=== PATIENT | male | born 1995 | race Caucasian/White ===

== ENCOUNTER 2022-04-27 15:50 | Inpatient (IN) | payer MEDICAID ==
[~2022-04-27] VITALS: Ht 182.9 cm; Wt 86.2 kg
[2022-04-27 16:44] LABS: BASOPHILS ABSOLUTE AUTO 0.03 K/mm3 (0.00-0.23); BASOPHILS PERCENT AUTO 0 % (0-2); EOSINOPHILS ABSOLUTE AUTO 0.13 K/mm3 (0.00-0.68); EOSINOPHILS PERCENT AUTO 1 % (0-6); Hemoglobin 17.5 g/dL (13.5-17.5); IMMATURE GRAN ABSOLUTE AUTO 0.08 K/mm3 (0.00-0.10); IMMATURE GRAN PERCENT AUTO 0 % (0-1); LYMPHOCYTES ABSOLUTE AUTO 1.97 K/mm3 (0.84-5.20); LYMPHOCYTES PERCENT AUTO 10 % (21-46); MONOCYTES ABSOLUTE AUTO 1.79 K/mm3 (0.16-1.47); MONOCYTES PERCENT AUTO 9 % (4-13); Mean Corpuscular HGB 30.2 pg (26.0-34.0); Mean Corpuscular HGB Conc 35.7 g/dL (31.5-36.5); Mean Corpuscular Volume 85 fL (80-100); Mean Platelet Volume 10.5 fL (9.1-12.4); NEUTROPHILS PERCENT AUTO 79 % (41-73); Platelet Count 277 K/mm3 (150-400); RDW Coefficient Variation 12.7 % (11.7-14.2); RDW Standard Deviation 38.8 fL (35.1-46.3); Red Blood Cell Count 5.79 M/mm3 (4.30-5.90)
[2022-04-27 17:06] LABS: Albumin, Blood 4.6 g/dL (3.4-5.0); Albumin/Globulin Ratio 1.1 (0.8-1.8); Bilirubin, Total 1.6 mg/dL (0.1-1.0); Bun/Creatinine Ratio 10.6 (12.0-20.0); Calcium, Blood 9.8 mg/dL (8.5-10.1); Creatinine, Blood 1.23 mg/dL (0.60-1.20); Globulin, Blood 4.1 g/dL (2.2-4.0); Potassium, Blood 4.1 mmol/L (3.5-5.5); Total Protein, Blood 8.7 g/dL (6.4-8.2)
[2022-04-27] MEDS ORDERED: BASAGLAR K100 UNIT/3 SC (18:44)
[2022-04-27 22:40] LABS: Lactate Dehydrogenase (Ld),Bld 142 U/L (100-240); Sodium, Blood 140 mmol/L (136-145)
--- NOTE | 2022-04-27 22:40 | NUR ---
ED ADMISSION THE PATIENT IS A 26 YEAR-OLD MALE WITH A DIAGNOSIS OF PANCREATITIS WITH NECROSIS AT THE PANCREATIC TAIL. PATIENT REPORTS A HISTORY OF EXACERBATIONS AFTER CONSUMING ALCOHOL. PATIENT DENIES DRINKING DAILY BUT DOES REPORT DRINKING SEVERAL BEERS YESTERDAY EVENING. A&OX4. PATIENT EFFECTIVELY COMMUNICATES NEEDS. BP 158/86, HR 44; PATIENT REPORTS THIS IS NORMAL FOR HIM. SPO2 >90% ON RA. RR EVEN AND UNLABORED. PATIENT REPORTS DIFFUSE RIGHT QUADRANT PAIN. REFER TO EMAR FOR PAIN MEDICATION COVERAGE. NS @ 150ML/HR INFUSING IN RIGHT FOREARM IV. NO ACUTE CONCERNS AT THIS TIME. THE PATIENT IS RESTING COMFORTABLY IN BED. BED LOW AND LOCKED. CALL LIGHT WITHIN REACH. THIS RN WILL CLOSELY MONITOR.
--- NOTE | 2022-04-28 00:45 | NUR ---
THIS RN SPOKE WITH DR. HENRIQUEZ REGARDING STOPPING NS INFUSION AND STARTING LR INFUSION RELATED TO SODIUM LEVEL OF 140 @2218. DR. HENRIQUEZ WAS AGREEABLE AND REQUESTED TO START LR INFUSION.
--- NOTE | 2022-04-28 04:33 | NUR ---
ADVANCED ANALYTICS ASSOCIATE SUMMARY THE PATIENT IS A 26 YEAR-OLD MALE WITH A DIAGNOSIS OF PANCREATITIS WITH NECROSIS AT THE PANCREATIC TAIL. PATIENT REPORTS A HISTORY OF FLARE-UPS AFTER CONSUMING ALCOHOL. PER PATIENT, HE IS NOT A DAILY DRINKER BUT DID DRINK SEVERAL BEERS YESTERDAY. PAIN ASSESSED AND MEDICATED PER EMAR. PATIENT REPORTED MILD NAUSEA WITH ONE EPISODE OF EMESIS. ZOFRAN PROVIDED PER EMAR. LR @ 125ML/HR INFUSING IN RIGHT FOREARM IV. VSS. SPO2 >92% ON RA. RR EVEN AND UNLABORED. NO ACUTE CONCERNS AT THIS TIME. BED LOW AND LOCKED. CALL LIGHT WITHIN REACH. THIS RN WILL CONTINUE TO CLOSELY MONITOR.
[2022-04-28 04:57] LABS: BASOPHILS ABSOLUTE AUTO 0.02 K/mm3 (0.00-0.23); BASOPHILS PERCENT AUTO 0 % (0-2); EOSINOPHILS ABSOLUTE AUTO 0.05 K/mm3 (0.00-0.68); EOSINOPHILS PERCENT AUTO 0 % (0-6); Hemoglobin 15.1 g/dL (13.5-17.5); IMMATURE GRAN ABSOLUTE AUTO 0.07 K/mm3 (0.00-0.10); IMMATURE GRAN PERCENT AUTO 0 % (0-1); LYMPHOCYTES PERCENT AUTO 9 % (21-46); MONOCYTES ABSOLUTE AUTO 1.63 K/mm3 (0.16-1.47); MONOCYTES PERCENT AUTO 10 % (4-13); Mean Corpuscular HGB 30.5 pg (26.0-34.0); Mean Corpuscular Volume 85 fL (80-100); Mean Platelet Volume 10.9 fL (9.1-12.4); NEUTROPHILS ABSOLUTE AUTO 12.74 K/mm3 (1.96-9.15); NEUTROPHILS PERCENT AUTO 80 % (41-73); Platelet Count 193 K/mm3 (150-400); RDW Coefficient Variation 12.7 % (11.7-14.2); RDW Standard Deviation 39.1 fL (35.1-46.3); Red Blood Cell Count 4.95 M/mm3 (4.30-5.90); White Blood Cell Count 16.01 K/mm3 (4.00-11.30)
[2022-04-28 05:34] LABS: Albumin, Blood 3.8 g/dL (3.4-5.0); Albumin/Globulin Ratio 1.1 (0.8-1.8); Bilirubin, Total 1.6 mg/dL (0.1-1.0); Bun/Creatinine Ratio 11.1 (12.0-20.0); Calcium, Blood 8.7 mg/dL (8.5-10.1); Creatinine, Blood 1.08 mg/dL (0.60-1.20); Globulin, Blood 3.6 g/dL (2.2-4.0); Potassium, Blood 3.7 mmol/L (3.5-5.5); Total Protein, Blood 7.4 g/dL (6.4-8.2)
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
--- NOTE | 2022-04-28 17:15 | NUR ---
SHIFT SUMMARY: PT ALERT AND ORIENTED X4. PT WAS UPSET THIS AM THAT WE WERE NOT DOSING HIM EVERY HOUR WITH HIS PAIN MEDICATION. EXPLAINED TO PT THAT THE PAIN MEDS ARE PRN AND TO CALL WHEN HE NEEDS IT. MORPHINE D/C'D. FENTANYL CHANGED TO 50MCG Q2 INSTEAD OF THE 25MCG. 30MG IV TORADOL Q6 PRN ORDERED. PT HAS BEEN CALLING Q2 FOR FENTANYL AND IS STARTING TO SAY HE FEELS LIKE THE PAIN MEDICATION IS HELPING. PT REMAINS NPO. PT HAD NAUSEA THIS AM. GAVE IV ZOFRAN AND HAS NOT C/O PAIN SINCE. LR RUNNING @150 W/O COMPLICATIONS. REQUEST FOR MEDICAL RECORDS FAXED TO [facility] IN [place] PER DR. RIOS. CALL LIGHT IN REACH. BED IN LOWEST POSITION. WILL CONTINUE TO MONITOR.
--- NOTE | 2022-04-29 04:24 | NUR ---
DOCUMENT COORDINATOR SUMMARY A&OX4. PATIENT EFFECTIVELY COMMUNICATES NEEDS. VSS. RR EVEN AND UNLABORED ON RA. RIGHT-SIDED ABDOMINAL PAIN ASSESSED AND FREQUENTLY MEDICATED PER EMAR. PATIENT IS NPO AND HAS LR @150 INFUSING IN RIGHT AC IV. NO ACUTE CONCERNS THIS SHIFT. BED LOW AND LOCKED. CALL LIGHT WITHIN REACH. THIS RN WILL CONTINUE TO MONITOR.
[2022-04-29 04:49] LABS: BASOPHILS ABSOLUTE AUTO 0.02 K/mm3 (0.00-0.23); BASOPHILS PERCENT AUTO 0 % (0-2); EOSINOPHILS ABSOLUTE AUTO 0.18 K/mm3 (0.00-0.68); EOSINOPHILS PERCENT AUTO 2 % (0-6); Hematocrit 35.4 % (37.0-53.0); Hemoglobin 12.8 g/dL (13.5-17.5); IMMATURE GRAN ABSOLUTE AUTO 0.02 K/mm3 (0.00-0.10); IMMATURE GRAN PERCENT AUTO 0 % (0-1); LYMPHOCYTES ABSOLUTE AUTO 1.01 K/mm3 (0.84-5.20); LYMPHOCYTES PERCENT AUTO 14 % (21-46); MONOCYTES ABSOLUTE AUTO 0.66 K/mm3 (0.16-1.47); MONOCYTES PERCENT AUTO 9 % (4-13); Mean Corpuscular HGB Conc 36.2 g/dL (31.5-36.5); Mean Corpuscular Volume 86 fL (80-100); Mean Platelet Volume 10.8 fL (9.1-12.4); NEUTROPHILS ABSOLUTE AUTO 5.61 K/mm3 (1.96-9.15); NEUTROPHILS PERCENT AUTO 75 % (41-73); Platelet Count 110 K/mm3 (150-400); RDW Coefficient Variation 12.5 % (11.7-14.2); RDW Standard Deviation 39.3 fL (35.1-46.3); Red Blood Cell Count 4.13 M/mm3 (4.30-5.90)
[2022-04-29 05:09] LABS: Albumin, Blood 3.1 g/dL (3.4-5.0); Anion Gap 7 mmol/L (6-16); Blood Urea Nitrogen 8 mg/dL (8-24); Bun/Creatinine Ratio 8.5 (12.0-20.0); CO2, Blood 27 mmol/L (21-32); Calcium, Blood 8.5 mg/dL (8.5-10.1); Chloride, Blood 102 mmol/L (98-108); Creatinine, Blood 0.94 mg/dL (0.60-1.20); Glomerular Filtration Rate 115 (60-); Glucose, Blood 141 mg/dL (70-99); Phosphorus, Blood 2.5 mg/dL (2.5-4.9); Potassium, Blood 3.8 mmol/L (3.5-5.5); Sodium, Blood 136 mmol/L (136-145)
--- NOTE | 2022-04-29 17:19 | NUR ---
SHIFT SUMMARY: PT ALERT AND ORIENTED X4. PT PLEASANT AND COOPERATIVE WITH ALL CARE. NO ACUTE CHANGES WITH PT THIS SHIFT. PT CHANGED TO CLEAR LIQUID DIET FROM NPO AND TOLERATING WELL. PT C/O PAIN SEVERAL TIMES THIS SHIFT. PROVIDED PT WITH FENTANYL 50MCG PRN. PT C/O NAUSEA ONCE. GAVE PT PRN ZOFRAN AND HAS NOT C/O NAUSEA SINCE. PT INDEPENDENT IN ROOM. IV PATENT AND FLUSHING W/O PAIN, REDNESS, OR SWELLING. CALL LIGHT IN REACH. WILL CONTINUE TO MONITOR.
--- NOTE | 2022-04-30 06:08 | NUR ---
SHIFT SUMMARY - PT DENIED ANY NAUSEA THROUGHOUT THE NIGHT. PT TOLERATED PO FLUIDS/WATER WITHOUT COMPLICATIONS. PT MEDICATED FOR RIGHT SIDED ABDOMINAL PAIN SEVERAL TIMES - SEE EMAR. PT REPORTS HE DOESN'T DRINK ETOH DAILY, "USUALLY ON THE WEEK END WITH FRIENDS." PT UNDERSTANDS THE IMPORTANCE OF LIMITING HIS ETOH INTAKE, DUE TO PANCREATITIS X2 NOW. PT SLEPT FOR APPX 4 HOURS TONIGHT. PO FLUIDS AT BEDSIDE. CALL LIGHT WITHIN REACH. BED IN LOW POSITION. PT HAS BEEN UP INDEPENDENTLY THROUGHOUT THE NIGHT. WILL CONTINUE TO MONITOR UNTIL AM SHIFT CHANGE.
[2022-04-30] MEDS ORDERED: MIRALAX17 GM PO (10:50)
[2022-04-30] MEDS ORDERED: Percocet 5-3251 EACH PO (10:50)
[2022-04-30] MEDS ORDERED: HUMALOG KW100 UNIT/1 SC (10:51)
--- NOTE | 2022-04-30 11:45 | NUR ---
PATIENT DISCHARGED AT 1120. IV PULLED. MEDS FAXED TO [facility]. PATIENT SENT HOME WITH HARD SCRIPT FOR PERCOCET.
== END 2022-04-30 11:20 | disposition home or self-care (01) | DRG 439 ==
LOC: ER 15:50 → MEDS 20:43 → ERHOLD 20:43 → MEDS 22:31
PROVIDERS: Family Medicine; Internal Medicine; Physician Assistant; ADMIT Student in an Organized Health Care Education/Training Program
DX: K85.20 Alcohol induced acute pancreatitis without necrosis or infection (principal); E87.1 Hypo-osmolality and hyponatremia; K86.1 Other chronic pancreatitis; F17.290 Nicotine dependence, other tobacco product, uncomplicated; E86.1 Hypovolemia; F10.90 Alcohol use, unspecified, uncomplicated; E11.65 Type 2 diabetes mellitus with hyperglycemia; Z79.4 Long term (current) use of insulin
CPT/HCPCS: 36415; 74177; 80053; 80069; 82947; 83036; 83615; 83690; 84295; 85025; 96374-59; 96375; 96376; 99285-25; A9270; G0480; J1170; J1815; J1885; J2270; J2405; J3010; J7030; J7120; Q9967

== ENCOUNTER 2022-07-13 16:39 | Emergency (ER) | payer OTHER ==
[~2022-07-13] VITALS: Ht 182.9 cm; Wt 78.0 kg
[~2022-07-13 16:39] MED LIST: BASAGLAR K100 UNIT/3 SC; HUMALOG KW100 UNIT/1 SC; MIRALAX17 GM PO; Percocet 5-3251 EACH PO
[2022-07-13 17:16] LABS: Base Excess Venous 3.3 mmol/L; Bicarbonate Venous 26.9 mmol/L (24.0-30.0); PCO2 Venous 42.1 mmHg (38-42); PO2 Venous 66.7 mmHg (38-42); pH Blood Venous 7.43 (7.34-7.37)
[2022-07-13 17:17] LABS: BASOPHILS ABSOLUTE AUTO 0.01 K/mm3 (0.00-0.23); BASOPHILS PERCENT AUTO 0 % (0-2); EOSINOPHILS ABSOLUTE AUTO 0.03 K/mm3 (0.00-0.68); EOSINOPHILS PERCENT AUTO 1 % (0-6); Hematocrit 41.3 % (37.0-53.0); Hemoglobin 14.7 g/dL (13.5-17.5); IMMATURE GRAN ABSOLUTE AUTO 0.01 K/mm3 (0.00-0.10); IMMATURE GRAN PERCENT AUTO 0 % (0-1); LYMPHOCYTES ABSOLUTE AUTO 1.16 K/mm3 (0.84-5.20); LYMPHOCYTES PERCENT AUTO 24 % (21-46); MONOCYTES ABSOLUTE AUTO 0.44 K/mm3 (0.16-1.47); MONOCYTES PERCENT AUTO 9 % (4-13); Mean Corpuscular HGB 30.1 pg (26.0-34.0); Mean Corpuscular HGB Conc 35.6 g/dL (31.5-36.5); Mean Corpuscular Volume 85 fL (80-100); Mean Platelet Volume 10.6 fL (9.1-12.4); NEUTROPHILS ABSOLUTE AUTO 3.17 K/mm3 (1.96-9.15); NEUTROPHILS PERCENT AUTO 66 % (41-73); Platelet Count 175 K/mm3 (150-400); RDW Standard Deviation 36.3 fL (35.1-46.3); Red Blood Cell Count 4.89 M/mm3 (4.30-5.90); White Blood Cell Count 4.82 K/mm3 (4.00-11.30)
[2022-07-13 17:40] LABS: Albumin, Blood 4.2 g/dL (3.4-5.0); Albumin/Globulin Ratio 1.1 (0.8-1.8); Bilirubin, Total 0.5 mg/dL (0.1-1.0); Bun/Creatinine Ratio 20.2 (12.0-20.0); Calcium, Blood 9.2 mg/dL (8.5-10.1); Creatinine, Blood 0.69 mg/dL (0.60-1.20); Globulin, Blood 3.8 g/dL (2.2-4.0); Potassium, Blood 4.1 mmol/L (3.5-5.5)
[2022-07-13 19:52] LABS: Source, Urine Clean Catch
[2022-07-13 19:55] LABS: Appearance, Urine Clear (Clear); Bilirubin, Urine Neg (Neg); Blood, Urine Neg (Neg); Glucose Qualitative, Urine 4+ (Neg); Ketones, Urine Neg (Neg); Leukocyte Esterase, Urine Neg (Neg); Nitrite, Urine Neg (Neg); Protein, Urine Neg (Neg); Urobilinogen, Urine NORM (Normal); pH, Urine 6.5 (5.0-8.0)
[2022-07-13 19:57] LABS: Color, Urine Pale Yellow (P-Yellow)
== END 2022-07-13 20:12 | disposition home or self-care (01) ==
LOC: ER 16:39
PROVIDERS: Physician Assistant
DX: E11.65 Type 2 diabetes mellitus with hyperglycemia (principal); F17.290 Nicotine dependence, other tobacco product, uncomplicated; Z79.4 Long term (current) use of insulin
CPT/HCPCS: 36415; 80053; 81003; 82803; 82947; 85025; 99283-25; A9270

== ENCOUNTER → 2022-09-08 | Outpatient (CLI) | payer OTHER ==
[2022-09-08 17:51] LABS: BASOPHILS ABSOLUTE AUTO 0.04 K/mm3 (0.00-0.23); BASOPHILS PERCENT AUTO 1 % (0-2); EOSINOPHILS ABSOLUTE AUTO 0.05 K/mm3 (0.00-0.68); EOSINOPHILS PERCENT AUTO 1 % (0-6); Hematocrit 42.1 % (37.0-53.0); Hemoglobin 13.9 g/dL (13.5-17.5); IMMATURE GRAN ABSOLUTE AUTO 0.02 K/mm3 (0.00-0.10); IMMATURE GRAN PERCENT AUTO 0 % (0-1); LYMPHOCYTES ABSOLUTE AUTO 1.56 K/mm3 (0.84-5.20); LYMPHOCYTES PERCENT AUTO 23 % (21-46); MONOCYTES ABSOLUTE AUTO 0.55 K/mm3 (0.16-1.47); MONOCYTES PERCENT AUTO 8 % (4-13); Mean Corpuscular HGB 29.4 pg (26.0-34.0); Mean Corpuscular Volume 89 fL (80-100); Mean Platelet Volume 10.7 fL (9.1-12.4); NEUTROPHILS PERCENT AUTO 67 % (41-73); Platelet Count 269 K/mm3 (150-400); RDW Coefficient Variation 12.3 % (11.7-14.2); RDW Standard Deviation 40.4 fL (35.1-46.3); Red Blood Cell Count 4.73 M/mm3 (4.30-5.90); White Blood Cell Count 6.82 K/mm3 (4.00-11.30)
[2022-09-08 19:45] LABS: Alanine Aminotransfer (ALT/SGP 40 U/L (12-78); Albumin/Globulin Ratio 1.1 (0.8-1.8); Alk Phos 95 U/L (50-136); Anion Gap 7 mmol/L (6-16); Aspartate Aminotrans (AST/SGOT 48 U/L (12-37); Bilirubin, Total 0.6 mg/dL (0.1-1.0); Blood Urea Nitrogen 17 mg/dL (8-24); Bun/Creatinine Ratio 21.3 (12.0-20.0); CHOL/HDL RATIO 3.2; CO2, Blood 27 mmol/L (21-32); Calcium, Blood 9.2 mg/dL (8.5-10.1); Chloride, Blood 94 mmol/L (98-108); Cholesterol 172 mg/dL (50-200); Globulin, Blood 3.6 g/dL (2.2-4.0); Glomerular Filtration Rate 124 (60-); Glucose, Blood 521 mg/dL (70-99); HDL Cholesterol 53 mg/dL (>39); LDL/HDL RATIO 1.5; Low Density Lipoprotein Chol 78 mg/dL (0-110); Potassium, Blood 4.8 mmol/L (3.5-5.5); Sodium, Blood 128 mmol/L (136-145); Total Protein, Blood 7.6 g/dL (6.4-8.2); Triglycerides 204 mg/dL (30-140); Very Low Density Lipoprot Chol 40 mg/dL (6-28)
[2022-09-09 09:13] LABS: HIV AB/P24 AG SCREEN Non Reactive (Non Reactive)
== END | disposition home or self-care (01) ==
LOC: LAB 17:21 → LAB SHORT 17:21
PROVIDERS: Family Medicine
DX: Z00.01 Encounter for general adult medical examination with abnormal findings (principal); Z13.6 Encounter for screening for cardiovascular disorders
CPT/HCPCS: 80053; 80061; 85025; 87389

== ENCOUNTER 2023-02-21 10:33 | Inpatient (IN) | payer OTHER ==
[~2023-02-21] VITALS: Ht 182.9 cm; Wt 77.4 kg
[2023-02-21] VITALS (7 sets, daily range): BP systolic 137–166; BP diastolic 101–142
[2023-02-21 11:14] LABS: BASOPHILS ABSOLUTE AUTO 0.05 K/mm3 (0.00-0.23); BASOPHILS PERCENT AUTO 0 % (0-2); EOSINOPHILS ABSOLUTE AUTO 0.01 K/mm3 (0.00-0.68); EOSINOPHILS PERCENT AUTO 0 % (0-6); Hematocrit 50.4 % (37.0-53.0); Hemoglobin 17.3 g/dL (13.5-17.5); IMMATURE GRAN ABSOLUTE AUTO 0.06 K/mm3 (0.00-0.10); IMMATURE GRAN PERCENT AUTO 1 % (0-1); LYMPHOCYTES ABSOLUTE AUTO 0.88 K/mm3 (0.84-5.20); LYMPHOCYTES PERCENT AUTO 7 % (21-46); MONOCYTES ABSOLUTE AUTO 0.96 K/mm3 (0.16-1.47); MONOCYTES PERCENT AUTO 8 % (4-13); Mean Corpuscular HGB 31.3 pg (26.0-34.0); Mean Corpuscular HGB Conc 34.3 g/dL (31.5-36.5); Mean Corpuscular Volume 91 fL (80-100); Mean Platelet Volume 9.6 fL (9.1-12.4); NEUTROPHILS ABSOLUTE AUTO 10.81 K/mm3 (1.96-9.15); NEUTROPHILS PERCENT AUTO 85 % (41-73); Platelet Count 308 K/mm3 (150-400); RDW Coefficient Variation 11.9 % (11.7-14.2); RDW Standard Deviation 40.1 fL (35.1-46.3); Red Blood Cell Count 5.52 M/mm3 (4.30-5.90); White Blood Cell Count 12.77 K/mm3 (4.00-11.30)
[2023-02-21 11:20] LABS: Source, Urine Clean Catch
[2023-02-21 11:25] LABS: Appearance, Urine Clear (Clear); Bilirubin, Urine Neg (Neg); Blood, Urine 2+ (Neg); Glucose Qualitative, Urine 4+ (Neg); Ketones, Urine 4+ (Neg); Leukocyte Esterase, Urine Neg (Neg); Nitrite, Urine Neg (Neg); Protein, Urine 3+ (Neg); Urobilinogen, Urine NORM (Normal)
[2023-02-21 11:46] LABS: Albumin, Blood 4.9 g/dL (3.4-5.0); Bilirubin, Total 1.2 mg/dL (0.1-1.0); Bun/Creatinine Ratio 12.2 (12.0-20.0); Calcium, Blood 10.1 mg/dL (8.5-10.1); Creatinine, Blood 0.9 mg/dL (0.60-1.20); Potassium, Blood 4.7 mmol/L (3.5-5.5); Total Protein, Blood 9.9 g/dL (6.4-8.2)
[2023-02-21 12:11] LABS: Color, Urine Pale Yellow (P-Yellow); Squamous Epithelial Cells Rare /hpf (Few); White Blood Cells, Urine Not Seen /hpf (0-5)
[2023-02-21 12:12] LABS: Bacteria Not Seen /hpf
[2023-02-21 16:14] LABS: Potassium, Blood 3.9 mmol/L (3.5-5.5)
--- NOTE | 2023-02-21 18:13 | NUR ---
ANGELA WAS ADMITTED TO ICU BED 5 JUST BEFORE 1700. HE IS A/O AND COOPERATIVE. HE IS VERY UNCOMFORTABLE WITH PAIN 8/10 IN THE MIDLINE BELOW STERNUM RADIATING. HE HAS BEEN MEDICATED PER JUN. HE HAS IV'S IN RIGHT AC AND LEFT WRIST, IV FLUIDS NS @ 150ML/HR AND INSULIN @ 4.4U/HR. HIS CHEM BG'S ARE COMING DOWN NICELY, WITH ORDERS TO SWITCH TO D51/2NS WHEN SUGAR AT OR BELOW 220.
--- NOTE | 2023-02-21 18:57 | NUR ---
CALL MADE TO DR. BARKER, PT REQUESTS THAT HE RECEIVE THE DILAUDID RATHER THAN THE MORPHINE, THE MORPHINE DIDN'T "HELP THAT MUCH". GAVE AN ADMONITION WITH THE ORDER, THIS WAS RELAYED TO THE PATIENT. PT IS NOTED TO HAVE SOME ABRASIONS/SCABS TO THE LEFT LOWER LEG, PT STATES THAT HE RECIEVED THEM WHILE PLAYING SOFTBALL JUST OVER A WEEK AGO. THERE IS NO OPEN AREA, SCABS AND DRY SKIN, PINK TISSUE EVIDENT.
--- NOTE | 2023-02-21 20:13 | NUR ---
PT'S BLOOD SUGAR HAS DROPPED TO 218, PER ORDERS PT IS CHANGED TO D5 1/2NS @ 100ML/HR WITH INSULIN STILL INFUSING AT 4.4U/HR. PT CONTINUES TO HAVE SIGNIFI- CANT PAIN IN THE ABDOMEN WITH MINIMAL RELIEF. MEDICATIONS PER MAR. VOIDED PER URINAL, CLEAR 1000ML. PT CONT TO TRY TO SLEEP.
[2023-02-21 20:14] LABS: Potassium, Blood 3.7 mmol/L (3.5-5.5)
[2023-02-21 23:49] LABS: Potassium, Blood 3.9 mmol/L (3.5-5.5)
[2023-02-22] VITALS (20 sets, daily range): BP systolic 114–153; BP diastolic 69–104
[2023-02-22 03:25] LABS: Hematocrit 45.4 % (37.0-53.0); Hemoglobin 16.1 g/dL (13.5-17.5); Mean Corpuscular HGB 31.4 pg (26.0-34.0); Mean Corpuscular HGB Conc 35.5 g/dL (31.5-36.5); Mean Corpuscular Volume 89 fL (80-100); Mean Platelet Volume 9.3 fL (9.1-12.4); Platelet Count 235 K/mm3 (150-400); RDW Coefficient Variation 12.3 % (11.7-14.2); Red Blood Cell Count 5.13 M/mm3 (4.30-5.90); White Blood Cell Count 13.41 K/mm3 (4.00-11.30)
[2023-02-22 03:44] LABS: Bun/Creatinine Ratio 16.3 (12.0-20.0); Calcium, Blood 8.5 mg/dL (8.5-10.1); Creatinine, Blood 0.74 mg/dL (0.60-1.20); Potassium, Blood 3.9 mmol/L (3.5-5.5)
--- NOTE | 2023-02-22 07:15 | NUR ---
CARE ASSUMPTION DURING BEDSIDE SHIFT REPORT W DARI RN THE PT IS AWAKE SITTING UPRIGHT IN BED ON RM AIR. MONITOR SHOWING SR 90'S. BP WNL AND STABLE. PT IS ALERT AND COMMUNICATING APPROPRIATELY W STAFF. PT HAS C/O PAIN IN HIS RLQ OF ABDOMEN WHICH IS UNCHANGED FROM PREVIOUS SHIFT. PT DENYING ANY FURTHER NEEDS AT THIS TIME.
--- NOTE | 2023-02-22 07:29 | NUR ---
PATIENT AOX4. SR/ST WITH STABLE BP. ROOM AIR. NPO. VOIDING IN URINAL. REQUESTING DILAUDID Q2 PRN FOR ABDOMINAL PAIN.
[2023-02-22 07:47] LABS: Bun/Creatinine Ratio 17.2 (12.0-20.0); Calcium, Blood 8.6 mg/dL (8.5-10.1); Creatinine, Blood 0.7 mg/dL (0.60-1.20); Potassium, Blood 3.8 mmol/L (3.5-5.5)
[2023-02-22 15:50] LABS: Bun/Creatinine Ratio 16.2 (12.0-20.0); Calcium, Blood 8.7 mg/dL (8.5-10.1); Creatinine, Blood 0.68 mg/dL (0.60-1.20); Potassium, Blood 3.5 mmol/L (3.5-5.5)
--- NOTE | 2023-02-22 16:29 | NUR ---
DAY SHIFT SUMMARY PT HAS REMAINED ALERT AND ORIENTED THIS SHIFT COMMUNICATING APPROPRIATELY W STAFF. PT'S GAP WAS CLOSED AND CO2 WNL THIS AM SO PT WAS BRIDGED TO LONG ACTING INSULIN AND OFF OF THE INSULIN GTT. PT NOT WANTING TO ATTEMPT ANY PO INTAKE THIS SHIFT. PT'S MAIN COMPLAINT HAS BEEN PAIN IN HIS RLQ WHICH IS UNCHANGED FROM PREVIOUS SHIFT. PT MEDICATED OR EMAR APPROX Q2H. PT DENYING ANY SIGNIFICANT NAUSEA THIS SHIFT BUT DID NOT BELIEVE HE WOULD BE ABLE TO EAT OR DRINK ANYTHING W/O THROWING IT UP. SPO2 >94% ON RM AIR. BP WNL AND STABLE. MONITOR SHOWING SR 80'S-90'S THIS SHIFT. PT USING HIS CALL LIGHT TO MAKE HIS NEEDS KNOWN THIS SHIFT AND PLEASANTLY PARTICPATING IN HIS CARE. TRANSFER ORDERS FOR MEDICAL FLOOR OBTAINED LATE THIS SHIFT FROM , NO BED ASSIGNMENT AT THIS TIME. WILL REPORT TO ONCOMING RN.
--- NOTE | 2023-02-22 19:46 | NUR ---
ASSUMED CARE PT IS A&O X4; SPO2 >92% ON RA; MAP >65; NSR. PT DENIES CP, SOB, AND NAUSEA. COMPLAINS OF RIGHT UPPER QUADRANT ABDOMINAL PAIN THAT RADIATES INTO LOWER RIGHT QUADRANT. MANAGING W/ DILAUDID AND TORADOL PER EMAR. RESTING QUIETLY AT THIS TIME.
--- NOTE | 2023-02-22 20:53 | NUR ---
TRANSFER PT TRANSFERRED TO MED 312 AT 2049 W/ MEDS AND BELONGINGS.
--- NOTE | 2023-02-23 05:26 | NUR ---
SHIFT SUMMARY PT IS A&O4, INDEPENDENT IN THE ROOM, RA, VSS, PRN PAIN MEDICATION GIVEN CONTINUALLY Q2 PER MAR FOR LUQ PAIN, PT WAS ABLE TO TOLERATE SIPS N CHIPS THROUGHOUT NIGHT W/O N/V, NO ACUTE OVERNIGHT EVENTS CONTINUE POC
[2023-02-23 07:41] VITALS: BP 114/70
[2023-02-23 15:32] VITALS: BP 117/84
--- NOTE | 2023-02-23 20:00 | NUR ---
SHIFT SUMMARY: PT A&O X4. PLEASANT AND COOPERATIVE WITH CARE. PT DIET UPGRADED FROM NPO TO FULL LIQUID AT DINNER. TOLERATING WELL. C/O ABDOMINAL PAIN FREQUENTLY. MEDICATED PER EMAR. NS INFUSING @100/HR. ROMEL HONEYCUTT PLACED NEW IV IN LFA D/T C/O IV BEEPING WHEN ARM BENT IN RAC. NO OTHER ACUTE CHANGES THIS SHIFT. CALL LIGHT IN REACH. REPORT GIVEN TO ONCOMING RN.
[2023-02-23 20:10] VITALS: BP 119/77
[2023-02-24 04:37] VITALS: BP 111/72
--- NOTE | 2023-02-24 05:42 | NUR ---
SHIFT SUMMARY: PT IS ADMITTED FOR DKA AND IS A FULL CODE. IS ALERT AND ABLE TO MAKE NEEDS KNOWN. ADL S ARE IND. PAIN HAS BEEN MANAGED BY PRN DILAUDID PER HIS REQUEST ABOUT EVERY 2 HOURS. IV TO LEFT FOREARM IS PATENT AND RUNNING NS @ 100ML/H WITH A CDI DRESSING.
[2023-02-24 05:48] LABS: Bun/Creatinine Ratio 8.5 (12.0-20.0); Calcium, Blood 8.9 mg/dL (8.5-10.1); Creatinine, Blood 0.71 mg/dL (0.60-1.20); Potassium, Blood 3.9 mmol/L (3.5-5.5)
[2023-02-24 07:42] VITALS: BP 118/70
[2023-02-24] MEDS ORDERED: TRAM50 PO (10:07)
== END 2023-02-24 13:35 | disposition home or self-care (01) | DRG 638 ==
LOC: ER 10:33 → MEDS 14:14 → ICUE 14:14 → MEDS 02-22 20:55 → ENPENDDIS 02-24 10:48 → MEDS 02-24 13:35
PROVIDERS: Internal Medicine; Student in an Organized Health Care Education/Training Program; ADMIT Internal Medicine
DX: E11.10 Type 2 diabetes mellitus with ketoacidosis without coma (principal); E87.1 Hypo-osmolality and hyponatremia; K86.3 Pseudocyst of pancreas; K86.1 Other chronic pancreatitis; Z79.4 Long term (current) use of insulin; Z87.19 Personal history of other diseases of the digestive system; Z87.891 Personal history of nicotine dependence
CPT/HCPCS: 36415; 76705; 80048; 80051; 80053; 81001; 82010; 82947; 83690; 83735; 85025; 85027; 94762; 96361; 96365; 96375; 96376; 99285-25; A9270; J1170; J1650; J1815; J1885; J2060; J2270; J2405; J3411; J7030; J7042

== ENCOUNTER 2023-04-07 02:00 | Inpatient (IN) | payer OTHER ==
[~2023-04-07] VITALS: Ht 182.9 cm; Wt 74.0 kg
[2023-04-07] VITALS (25 sets, daily range): BP systolic 122–161; BP diastolic 75–143
[~2023-04-07 02:00] MED LIST changes: +TRAM50 PO
[2023-04-07 03:04] LABS: Base Excess Venous -28.6 mmol/L; Bicarbonate Venous 7.4 mmol/L (24.0-30.0); PCO2 Venous 25.8 mmHg (38-42); pH Blood Venous 6.87 (7.34-7.37)
[2023-04-07 03:21] LABS: BASOPHILS ABSOLUTE AUTO 0.08 K/mm3 (0.00-0.23); BASOPHILS PERCENT AUTO 0 % (0-2); EOSINOPHILS ABSOLUTE AUTO 0.01 K/mm3 (0.00-0.68); EOSINOPHILS PERCENT AUTO 0 % (0-6); Hematocrit 52.9 % (37.0-53.0); Hemoglobin 17.6 g/dL (13.5-17.5); IMMATURE GRAN ABSOLUTE AUTO 0.21 K/mm3 (0.00-0.10); IMMATURE GRAN PERCENT AUTO 1 % (0-1); LYMPHOCYTES ABSOLUTE AUTO 2.16 K/mm3 (0.84-5.20); LYMPHOCYTES PERCENT AUTO 10 % (21-46); MONOCYTES ABSOLUTE AUTO 2.66 K/mm3 (0.16-1.47); MONOCYTES PERCENT AUTO 12 % (4-13); Mean Corpuscular HGB 30.9 pg (26.0-34.0); Mean Corpuscular HGB Conc 33.3 g/dL (31.5-36.5); Mean Corpuscular Volume 93 fL (80-100); Mean Platelet Volume 10.3 fL (9.1-12.4); NEUTROPHILS PERCENT AUTO 77 % (41-73); Platelet Count 339 K/mm3 (150-400); RDW Coefficient Variation 12.9 % (11.7-14.2); RDW Standard Deviation 43.1 fL (35.1-46.3); Red Blood Cell Count 5.69 M/mm3 (4.30-5.90); White Blood Cell Count 22.02 K/mm3 (4.00-11.30)
[2023-04-07 04:00] LABS: Calcium, Ionized (POC) 1.08 mmol/L (1.10-1.46); Chloride (POC) 100 mmol/L (98-108); Creatinine (POC) 1.3 mg/dL (0.8-1.3); Glucose (ISTAT POC) 565 mg/dL (70-99); Hemoglobin (POC) 18.4 g/dL (13.5-17.5); Potassium (POC) 3.9 mmol/L (3.5-5.5); Sodium (POC) 130 mmol/L (135-148); Total CO2 (POC) 8 mmol/L (21-32)
[2023-04-07 04:40] LABS: Source, Urine Voided
[2023-04-07 04:45] LABS: Bilirubin, Urine Neg (Neg); Blood, Urine 4+ (Neg); Glucose Qualitative, Urine 4+ (Neg); Ketones, Urine 4+ (Neg); Leukocyte Esterase, Urine Neg (Neg); Nitrite, Urine Neg (Neg); Protein, Urine 3+ (Neg); Specific Gravity, Urine 1.025 (1.003-1.022); Urobilinogen, Urine NORM (Normal)
[2023-04-07 05:17] LABS: Appearance, Urine Clear (Clear); Color, Urine Pale Yellow (P-Yellow)
[2023-04-07 05:20] LABS: Bacteria Few /hpf; Squamous Epithelial Cells Few /hpf (Few); White Blood Cells, Urine 0-2 /hpf (0-5)
[2023-04-07 05:36] LABS: Magnesium, Blood 2.3 mg/dL (1.6-2.4)
[2023-04-07 05:44] LABS: Albumin, Blood 4.6 g/dL (3.4-5.0); Bilirubin, Total 0.7 mg/dL (0.1-1.0); Calcium, Blood 8.1 mg/dL (8.5-10.1); Creatinine, Blood 1.25 mg/dL (0.60-1.20); Globulin, Blood 4.5 g/dL (2.2-4.0); Potassium, Blood 3.8 mmol/L (3.5-5.5); Total Protein, Blood 9.1 g/dL (6.4-8.2)
--- NOTE | 2023-04-07 06:37 | NUR ---
SHIFT SUMMARY PATIENT ARRIVED TO ICU FROM ER @ 0520 VIA BED. BELONGINGS WITH PATIENT AND GIRLFRIEND IN ICU WAITING AREA. INSULIN @ 8 UNITS/HR, NS WITH 20MEQ KCL DC'D UPON ARRIVAL AND LR STARTED @ 200ML/HR. 40MEQ KCL ORDERED AND INF. CBG DECREASED FROM 500'S IN ER TO 433 IN ICU. PATIENT WAS ABLE TO STAND AND USE URINAL AT BEDSIDE WITH 750ML OUT. NO BM SINCE ARRIVAL. CRITICAL LABS OF LACTIC 2.4 AND CARBON DIOXIDE 4 RECEIVED AND CALLED TO DR. MORALES WITH NO NEW ORDERS. MEDICATED WITH MORPHINE 1MG IV X 1 AND TRAMADOL 50MG PO X 1 FOR ABD PN. NPO STATUS, BUT TOLERATES ICE CHIPS AND PO MEDS WELL. NO OTHER CHANGES THIS SHIFT.
[2023-04-07 07:21] LABS: Bicarbonate Venous 7.7 mmol/L (24.0-30.0); PCO2 Venous 23.1 mmHg (38-42); pH Blood Venous 6.94 (7.34-7.37)
[2023-04-07 07:22] LABS: Base Excess Venous -27.3 mmol/L
[2023-04-07 07:34] LABS: Magnesium, Blood 2.3 mg/dL (1.6-2.4)
[2023-04-07 07:40] LABS: Calcium, Blood 7.4 mg/dL (8.5-10.1); Creatinine, Blood 1.12 mg/dL (0.60-1.20); Phosphorus, Blood 2.6 mg/dL (2.5-4.9); Potassium, Blood 4.2 mmol/L (3.5-5.5)
--- NOTE | 2023-04-07 11:00 | NUR ---
ASSUMED CARE CARE WAS ASSUMED OF PT AT 0700, REPORT GIVEN BY GRETTA URENA. PT A/O X4. PT SLEEPING WHEN NOT ACTIVELY ENGAGING IN CONVERSATION. PT ABLE TO ANSWER QUESTIONS APPROPRIATELY. INSULIN GTT INFUSING, SEE FLOWSHEET. PT ON RA, O2 SATS > 95%. CARDIAC MONITORING REFLECTS SINUS TACH, SBP 130s. HR 90s-110s. PT DENIES ANY RECENT ETOH USE. D5 1/2 NS STARTED THIS MORNING. LR INFUSING. PT TOLERATING ICE CHIPS. PT COMPLAINING OF RUQ PAIN, HOSPITALIST AWARE. MEDICATING PT PER EMAR, NO FURTHER ORDERS RECIEVED.
[2023-04-07 11:19] LABS: Base Excess Venous -21.1 mmol/L; Bicarbonate Venous 10.8 mmol/L (24.0-30.0); PCO2 Venous 24.6 mmHg (38-42)
[2023-04-07 11:20] LABS: pH Blood Venous 7.13 (7.34-7.37)
[2023-04-07 11:39] LABS: Magnesium, Blood 2.2 mg/dL (1.6-2.4)
[2023-04-07 11:49] LABS: Bun/Creatinine Ratio 19.3 (12.0-20.0); Calcium, Blood 7.8 mg/dL (8.5-10.1); Creatinine, Blood 0.88 mg/dL (0.60-1.20); Phosphorus, Blood 0.7 mg/dL (2.5-4.9); Potassium, Blood 4.1 mmol/L (3.5-5.5)
[2023-04-07 15:25] LABS: Magnesium, Blood 1.7 mg/dL (1.6-2.4)
[2023-04-07 15:35] LABS: Bun/Creatinine Ratio 17.3 (12.0-20.0); Creatinine, Blood 0.81 mg/dL (0.60-1.20); Phosphorus, Blood 0.7 mg/dL (2.5-4.9); Potassium, Blood 3.5 mmol/L (3.5-5.5)
--- NOTE | 2023-04-07 17:25 | NUR ---
SHIFT SUMMARY PT REMAINS A/O X4. PT HAS BEEN ABLE TO PARTICIPATE IN CONVERSATION AND ANSWER QUESTIONS APPROPRIATELY THIS SHIFT. PT HAS SLEPT T/O SHIFT AND AWAKENS EASILY WHEN STAFF ENTER ROOM. PT ABLE TO USE URINAL AND REPOSITION INDEPENDENTLY. INSULIN GTT INFUSING, SEE FLOWSHEET. BLOOD GLUCOSE LEVELS STABLE THIS SHIFT, GRADUALLY DECREASING. D5 1/2 NS, LR, SODIUM PHOS. INFUSING AT THIS TIME. AWAITING KPHOS GTT FROM PHARMACY TO BEGIN POTASSIUM REPLACEMENT. PT REMAINS ON RA, O2 SATS > 95%. CARDIAC MONITORING REFLECTS NSR AT THIS TIME, HR 90s. SBP 130s-140s. PT COMPLAINING OF ABDOMINAL PAIN THIS SHIFT, MEDICATING PT PER EMAR. PROVIDER AWARE. ABDOMINAL CT ORDERED BY DR. CUMMINGS. PLAN TO CONTINUE WITH Q4HR CHEM-8 LAB DRAWS.
[2023-04-07 19:24] LABS: Calcium, Blood 7.9 mg/dL (8.5-10.1); Creatinine, Blood 0.63 mg/dL (0.60-1.20); Potassium, Blood 3.2 mmol/L (3.5-5.5)
--- NOTE | 2023-04-07 19:30 | NUR ---
INSULIN ORDERS DR. Calhoun, NIGHT RESIDENT, CALLED AND GAVE VERBAL ORDERS TO ADMINISTER LANTUS 17UNITS SC X 1 ONCE PATIENT IS ABLE TO TOLERATE PO INTAKE, THEN SHUT OFF INSULIN GTT 2 HOURS AFTER. DISCUSSED WITH PATIENT AND HE STATES HE DOES NOT FEEL HE CAN TOLERATE PO INTAKE AT THIS TIME D/T INTERMITTENT NAUSEA. PATIENT WILL NOTIFY STAFF WHEN ABLE TO TOLERATE PO INTAKE.
--- NOTE | 2023-04-07 23:37 | NUR ---
MELATONIN PATIENT C/O DIFFICULTY SLEEPING AND REQUESTS MELATONIN. CALL MADE TO DR. Calhoun, NIGHT RESIDENT, AND ORDER RECEIVED FOR MELATONIN 5MG PO AT BEDTIME PRN.
[2023-04-07 23:45] LABS: Bun/Creatinine Ratio 15.4 (12.0-20.0); Calcium, Blood 7.7 mg/dL (8.5-10.1); Creatinine, Blood 0.58 mg/dL (0.60-1.20); Potassium, Blood 2.9 mmol/L (3.5-5.5)
[2023-04-08] VITALS: BP 129/81
[2023-04-08 01:00] VITALS: BP 127/78
[2023-04-08 03:45] VITALS: BP 128/79
[2023-04-08 05:13] LABS: Calcium, Blood 8.2 mg/dL (8.5-10.1); Creatinine, Blood 0.64 mg/dL (0.60-1.20); Potassium, Blood 3.4 mmol/L (3.5-5.5)
--- NOTE | 2023-04-08 05:47 | NUR ---
SHIFT SUMMARY PATIENT SLEPT T/O SHIFT. MEDICATED FOR PAIN PER EMAR. REMAINS A&O X 4, ABLE TO USE CALL LIGHT AND URINAL INDEPENDENTLY. NO FAMILY AT BEDSIDE THIS SHIFT. MEDICATED FOR NAUSEA ONCE, BUT NO VOMITING. TOLERATING PO DIET. POTASSIUM AT BEGINNING OF SHIFT WAS 2.4. REPLACED WITH 30MEQ KCL PO AND 40MEQ KCL IV WITH POTASSIUM IMPROVING TO 3.4. INSULIN GTT OFF @ 0130. IV FLUIDS DC'D D/T PO INTAKE. TOTAL URINE OUTPUT OF 3600. NO OTHER CHANGES THIS SHIFT.
[2023-04-08 08:33] LABS: Bun/Creatinine Ratio 13.7 (12.0-20.0); Calcium, Blood 8.3 mg/dL (8.5-10.1); Creatinine, Blood 0.59 mg/dL (0.60-1.20); Potassium, Blood 3.6 mmol/L (3.5-5.5)
[2023-04-08 08:39] VITALS: BP 121/73
[2023-04-08] MEDS ORDERED: NAPR500 PO (13:55)
--- NOTE | 2023-04-08 14:22 | NUR ---
DISCHARGE NOTE PT REMAINED A/O X4 THIS SHIFT. ABLE TO ANSWER QUESTIONS APPROPRIATELY AND PARTICIPATE IN CONVERSATION. PT ON RA, O2 SATS >95%. VSS. PT ABLE TO AMBULATE IN ROOM INDEPENDENTLY. PT TOLERATING PO INTAKE, REQUESTING FOOD AND BEVERAGE T/O SHIFT. PT DISCHARGED AT 1415. POWERGLIDE AND TWO PIVs REMOVED, CATHETER TIPS INTACT. DISCHARGE INSTRUCTIONS AND EDUCATION PROVIDED TO PT. QUESTIONS ANSWERED. PT STATES THEY WILL MAKE THEIR OWN FOLLOW-UP APPOINTMENT WITH PCP. PROVIDED PT EDUCATION REGARDING NEW OR CONTINUING MEDICATIONS, PT NOTIFIED OF PRESCRIPTIONS FAXED TO [facility]. PT DISCHARGED TO HOME, PT'S MOTHER PICKED HIM UP.
== END 2023-04-08 14:20 | disposition home or self-care (01) | DRG 637 ==
LOC: ER 02:00 → ICUE 04:51
PROVIDERS: Emergency Medicine; Internal Medicine; ADMIT Student in an Organized Health Care Education/Training Program
DX: E10.10 Type 1 diabetes mellitus with ketoacidosis without coma (principal); K85.20 Alcohol induced acute pancreatitis without necrosis or infection; E87.1 Hypo-osmolality and hyponatremia; N17.9 Acute kidney failure, unspecified; K86.0 Alcohol-induced chronic pancreatitis; K86.3 Pseudocyst of pancreas; F10.10 Alcohol abuse, uncomplicated; F17.290 Nicotine dependence, other tobacco product, uncomplicated; E86.0 Dehydration; R31.29 Other microscopic hematuria; Z79.4 Long term (current) use of insulin; Z91.148 Patient's other noncompliance with medication regimen for other reason
CPT/HCPCS: 36415; 74177; 80047; 80048; 80053; 81001; 82803; 82947; 83605; 83690; 83735; 84100; 85014; 85025; 93005; 93010; 96361; 96374; 96375; 99285-25; A9270; C1751; J1815; J2270; J2405; J2765; J3480; J7030; J7042; J7050; J7060; J7120; Q9967

== ENCOUNTER 2024-06-24 07:49 | Inpatient (IN) | payer OTHER ==
[~2024-06-24] VITALS: Ht 182.9 cm; Wt 79.1 kg
[2024-06-24] VITALS (18 sets, daily range): BP systolic 134–188; BP diastolic 104–143
[~2024-06-24 07:49] MED LIST changes: +NAPR500 PO
[2024-06-24 08:48] LABS: BASOPHILS ABSOLUTE AUTO 0.04 K/mm3 (0.00-0.23); BASOPHILS PERCENT AUTO 0 % (0-2); EOSINOPHILS ABSOLUTE AUTO 0.01 K/mm3 (0.00-0.68); EOSINOPHILS PERCENT AUTO 0 % (0-6); Hematocrit 51.8 % (37.0-53.0); Hemoglobin 18.3 g/dL (13.5-17.5); IMMATURE GRAN ABSOLUTE AUTO 0.02 K/mm3 (0.00-0.10); IMMATURE GRAN PERCENT AUTO 0 % (0-1); LYMPHOCYTES ABSOLUTE AUTO 1.35 K/mm3 (0.84-5.20); LYMPHOCYTES PERCENT AUTO 15 % (21-46); MONOCYTES ABSOLUTE AUTO 0.84 K/mm3 (0.16-1.47); MONOCYTES PERCENT AUTO 9 % (4-13); Mean Corpuscular HGB 31.4 pg (26.0-34.0); Mean Corpuscular HGB Conc 35.3 g/dL (31.5-36.5); Mean Corpuscular Volume 89 fL (80-100); NEUTROPHILS ABSOLUTE AUTO 7.08 K/mm3 (1.96-9.15); NEUTROPHILS PERCENT AUTO 76 % (41-73); Platelet Count 175 K/mm3 (150-400); RDW Coefficient Variation 12.4 % (11.7-14.2); RDW Standard Deviation 40.7 fL (35.1-46.3); Red Blood Cell Count 5.82 M/mm3 (4.30-5.90); White Blood Cell Count 9.34 K/mm3 (4.00-11.30)
[2024-06-24 08:49] LABS: Base Excess Venous 0.1 mmol/L; Bicarbonate Venous 26.6 mmol/L (24.0-30.0); PCO2 Venous 24.3 mmHg (38-42); pH Blood Venous 7.57 (7.34-7.37)
[2024-06-24 09:05] LABS: Albumin, Blood 4.2 g/dL (3.4-5.0); Albumin/Globulin Ratio 0.8 (0.8-1.8); Bilirubin, Total 1.7 mg/dL (0.1-1.0); Bun/Creatinine Ratio 18.9 (12.0-20.0); Calcium, Blood 12.1 mg/dL (8.5-10.1); Creatinine, Blood 0.74 mg/dL (0.60-1.20); Globulin, Blood 5.1 g/dL (2.2-4.0); Total Protein, Blood 9.3 g/dL (6.4-8.2)
[2024-06-24] MEDS ORDERED: Lactated Ringer's 1,000 ML IV SCH ×3 (09:10→14:45)
[2024-06-24] MEDS ORDERED: Ondansetron HCl 2 MG / ML 2ML Vial IV ONE (09:10)
[2024-06-24] MEDS ORDERED: FentaNYL Citrate 50 MCG/ML 2 ML Injection IV ONE (09:10)
[2024-06-24] MEDS ORDERED: HYDROmorphone HCl/Pf 1MG SYR IV ONE (10:00)
[2024-06-24] MEDS ORDERED: Insulin Human Lispro 100 Units/ML 3ML Syringe SC ONE (10:00)
[2024-06-24] MEDS ORDERED: Famotidine 10 MG/ML 2ML Vial IV ONE (10:00)
[2024-06-24] MEDS ORDERED: LORazepam 2 MG/ML 1ML Injection IV PRN (13:00)
[2024-06-24] MEDS ORDERED: HYDROmorphone HCl/Pf 1MG SYR IV PRN ×2 (13:00→18:15)
[2024-06-24] MEDS ORDERED: FLU VACC TS2024-25(6MOS UP)/PF 45 MCG/0.5 ML SYRINGE IM ONE (13:00)
[2024-06-24] MEDS ORDERED: Ondansetron HCl 2 MG / ML 2ML Vial IV PRN (13:00)
[2024-06-24] MEDS ORDERED: ChlordiazePOXIDE 25 MG Cap PO PRN (13:05)
[2024-06-24] MEDS ORDERED: Insulin Human Regular 100 UNIT in NS 100 ML IV SCH (13:10)
[2024-06-24 17:57] LABS: Magnesium, Blood 1.7 mg/dL (1.6-2.4)
[2024-06-24 18:04] LABS: Creatinine, Blood 0.76 mg/dL (0.60-1.20); Phosphorus, Blood 2.5 mg/dL (2.5-4.9)
[2024-06-24 18:05] LABS: Calcium, Blood 9.7 mg/dL (8.5-10.1)
--- NOTE | 2024-06-24 18:51 | NUR ---
ASSUMPTION OF CARE/SHIFT SUMMARY PT TO ICU 10 AT 1751. NO ACUTE CHANGES SINCE ADMIT TO UNIT. AMBULATES TO ICU BED W/O DIFFICULTY. ALERT AND ORIENTED X 4. INSULIN INFUSING AT 3.1 U/HR, LR INFUSING AT 150 mL/HR. REMAINS ON RA WITH O2 SATURATIONS > 92%. MEDICATED FOR PAIN PER EMAR c GOOD BENEFIT. PG PLACED TO NAKIA. WILL CONTINUE TO MONITOR AND REPORT TO ONCOMING RN.
[2024-06-24] MEDS ORDERED: D5W-1/2NS 1,000 ML IV SCH (19:35)
[2024-06-24] MEDS ORDERED: Famotidine 10 MG/ML 2ML Vial IV SCH (21:00)
[2024-06-24] MEDS ORDERED: Docusate Sodium 100 MG Cap PO SCH (21:00)
[2024-06-24] MEDS ORDERED: Sennosides 8.6 MG Tab PO SCH (21:00)
[2024-06-24] MEDS ORDERED: HydrALAZINE HCl 25 MG Tab PO PRN (21:20)
[2024-06-24] MEDS ORDERED: OxyCODONE 5 mg/Acetamin 325 mg TABLET PO PRN (21:20)
[2024-06-24] MEDS ORDERED: Nicotine 21 MG PATCH TOP ONE (21:25)
--- NOTE | 2024-06-24 21:28 | NUR ---
ASSUMPTION OF CARE: ASSUMED CARE OF PT AT 1900. PT ALERT AND ORIENTED. FOLLOWS DIRECTION AND MAKES NEEDS KNOWN. ON RA WITH SPO2 HIGH 90'S. DENIES SOB, LUNGS CLEAR. SUPERVISOR STEEL DIVISION IN PLACE, SR WITH HR 80'S. SBP 170-180'S, ORDER OBTAINED FOR PRN HYDRALAZINE. DENIES CP. PT C/O ABDOMINAL PAIN, MEDICATED WITH PRN PAIN MEDS, JANET AWARE. PT VOIDING IND. PT IND IN BED. INSULIN GTT INFUSING, SEE FLOWSHEET FOR TITRATIONS. D5 1/2 NS AT 150 ML/HR. POWERGLIDE TO NAKIA, PIV TO LFA. PT DENIES N/V. TOLERATING ICE CHIPS. BED LOW AND LOCKED, CALL LIGHT IN REACH.
[2024-06-24 23:07] LABS: Calcium, Blood 9.7 mg/dL (8.5-10.1); Creatinine, Blood 0.74 mg/dL (0.60-1.20); Potassium, Blood 3.5 mmol/L (3.5-5.5)
[2024-06-24] MEDS ORDERED: Potassium Chloride 20 MEQ TabCR PO ONE (23:15)
[2024-06-25] VITALS (38 sets, daily range): BP systolic 116–224; BP diastolic 61–198
[2024-06-25] MEDS ORDERED: HydrALAZINE HCl 20 MG / ML 1ML Vial IV PRN ×2 (01:05→10:05)
[2024-06-25 02:40] LABS: BASOPHILS ABSOLUTE AUTO 0.04 K/mm3 (0.00-0.23); BASOPHILS PERCENT AUTO 1 % (0-2); EOSINOPHILS ABSOLUTE AUTO 0.02 K/mm3 (0.00-0.68); EOSINOPHILS PERCENT AUTO 0 % (0-6); Hematocrit 46.7 % (37.0-53.0); Hemoglobin 15.8 g/dL (13.5-17.5); IMMATURE GRAN ABSOLUTE AUTO 0.03 K/mm3 (0.00-0.10); IMMATURE GRAN PERCENT AUTO 0 % (0-1); LYMPHOCYTES ABSOLUTE AUTO 0.97 K/mm3 (0.84-5.20); LYMPHOCYTES PERCENT AUTO 13 % (21-46); MONOCYTES PERCENT AUTO 11 % (4-13); Mean Corpuscular HGB 31.7 pg (26.0-34.0); Mean Corpuscular HGB Conc 33.8 g/dL (31.5-36.5); Mean Platelet Volume 10.4 fL (9.1-12.4); NEUTROPHILS ABSOLUTE AUTO 5.43 K/mm3 (1.96-9.15); NEUTROPHILS PERCENT AUTO 75 % (41-73); Platelet Count 98 K/mm3 (150-400); RDW Coefficient Variation 12.3 % (11.7-14.2); RDW Standard Deviation 42.8 fL (35.1-46.3); Red Blood Cell Count 4.98 M/mm3 (4.30-5.90); White Blood Cell Count 7.29 K/mm3 (4.00-11.30)
[2024-06-25 02:42] LABS: Mean Corpuscular Volume 94 fL (80-100)
[2024-06-25 02:56] LABS: Albumin, Blood 3.7 g/dL (3.4-5.0); Albumin/Globulin Ratio 0.9 (0.8-1.8); Bilirubin, Total 1.9 mg/dL (0.1-1.0); Bun/Creatinine Ratio 19.6 (12.0-20.0); Calcium, Blood 9.9 mg/dL (8.5-10.1); Creatinine, Blood 0.66 mg/dL (0.60-1.20); Globulin, Blood 4.2 g/dL (2.2-4.0); Potassium, Blood 4.3 mmol/L (3.5-5.5); Total Protein, Blood 7.9 g/dL (6.4-8.2)
[2024-06-25] MEDS ORDERED: HYDROmorphone HCl/Pf 1MG SYR IV ONE (04:00)
[2024-06-25] MEDS ORDERED: Labetalol HCL 5 MG/ML 20MLVIAL IV PRN (04:00)
--- NOTE | 2024-06-25 06:30 | NUR ---
SHIFT SUMMARY: PT CONTINUES TO BE ALERT AND ORIENTED T/O THE NIGHT. UNABLE TO SLEEP VERY MUCH. CONTINUES TO ENDORSE ABDOMINAL PAIN, MEDICATED WITH PRN PAIN MEDS WITH LITTLE RELIEF. DENIES N/V. TOLERATING ICE CHIPS. CONTINUES ON RA WITH NO C/O SOB. AFEBRILE. D5 1/2 NS AT 150 ML/HR. INSULIN GTT AT 3.6 UNITS/HR. TIE KNITTER HELPER IN PLACE, SR WITH HR 70-80'S. SBP ELEVATED T/O THE SHIFT RANGING FROM 160-210. DR. ROJAS AWARE. PT GIVEN MULTIPLE DOSES OF PRN BLOOD PRESSURE MEDICATION WITH LITTLE TO NO CHANGE. PT DENIES HEADACHES OR DIZZINESS. DENIES CP. ABLE TO URINATE INTO URINAL IND. NO BM THIS SHIFT. BED LOW AND LOCKED, CALL LIGHT IN REACH.
[2024-06-25] MEDS ORDERED: Lisinopril 20 MG Tab PO SCH (06:40)
[2024-06-25 07:41] LABS: Bun/Creatinine Ratio 19.9 (12.0-20.0); Calcium, Blood 9.3 mg/dL (8.5-10.1); Creatinine, Blood 0.6 mg/dL (0.60-1.20); Potassium, Blood 3.3 mmol/L (3.5-5.5)
[2024-06-25] MEDS ORDERED: Potassium Chloride 20 MEQ TabCR PO ONE (08:00)
[2024-06-25] MEDS ORDERED: Ampicillin Sod/Sulbactam Sod 3 GM in NS 100 ML IV SCH (08:30)
[2024-06-25] MEDS ORDERED: Enoxaparin 40 MG/0.4 ML SYR SC SCH (09:00)
[2024-06-25] MEDS ORDERED: Nicotine 21 MG PATCH TOP SCH (09:00)
[2024-06-25] MEDS ORDERED: AmLODIPine Besylate 5 MG Tab PO SCH (09:00)
--- NOTE | 2024-06-25 09:48 | NUR ---
ASSUMED CARE OF PATIENT AT APPROXIMATELY 0700 REPORT RECEIVED FROM ROMEL REDDY. PT AWAKE IN BED, INTERACTING WITH STAFF APPROPRIATELY DURING BEDSIDE REPORT. CONTINOUS CARDIAC MONITORING IN PLACE SHOWING SR. HYPERTENSIVE AT 209/117. DENIES CP/SOB. INSULIN INFUSING AT 3.6 U/HR, D5 1/2 NS INFUSING AT 150 mL/HR. LATER SPOKE WITH DR. VIDAL REGARDING BP. NEW ORDERS PLACED. SEE SHIFT ASSESSMENT FOR FULL DETAILS.
[2024-06-25] MEDS ORDERED: Insulin Glargine-Yfgn 100 Unit/mL 3 ML SYR SC SCH (10:00)
[2024-06-25] MEDS ORDERED: Carvedilol 6.25 MG Tab PO SCH (10:05)
[2024-06-25] MEDS ORDERED: D5W-NS 1,000 ML IV SCH (12:00)
[2024-06-25] MEDS ORDERED: NS 1,000 ML IV SCH (12:35)
[2024-06-25] MEDS ORDERED: Insulin Human Lispro 100 Units/ML 3ML Syringe SC SCH ×2 (12:50→16:30)
[2024-06-25] MEDS ORDERED: AMLO5 PO (15:41)
[2024-06-25] MEDS ORDERED: CARV6.25 PO (15:41)
[2024-06-25] MEDS ORDERED: LISI20 PO (15:42)
--- NOTE | 2024-06-25 15:49 | NUR ---
DISCHARGE PACKET REVIEWED WITH PATIENT AND SIGNED. ALL QUESTIONS ANSWERED. PT ESCORTED TO ED ENTRANCE TO WAIT FOR HIS RIDE.
== END 2024-06-25 15:49 | disposition home or self-care (01) | DRG 638 ==
LOC: ER 07:49 → ICUE 07:50 → ERHOLD 07:50 → ICUE 17:56
PROVIDERS: Emergency Medicine; Internal Medicine; ADMIT Internal Medicine
DX: E10.10 Type 1 diabetes mellitus with ketoacidosis without coma (principal); E87.1 Hypo-osmolality and hyponatremia; K86.1 Other chronic pancreatitis; K86.3 Pseudocyst of pancreas; D69.6 Thrombocytopenia, unspecified; Z28.21 Immunization not carried out because of patient refusal; Z79.4 Long term (current) use of insulin
CPT/HCPCS: 36415; 74177; 76705; 80048; 80053; 80320; 82010; 82803; 82947; 83690; 83735; 84100; 85025; 93005; 93010; 96361; 96374-59; 96375; 96376; 99285-25; A9270; C1751; G0378; J0360; J1171; J1815; J2405; J3010; J7030; J7042; J7120; Q9967